=== PATIENT | male | born 1990 | race Caucasian/White ===

== ENCOUNTER → 2016-11-16 | Outpatient (CLI) | payer BC ==
[2016-11-16 13:37] LABS: SEMEN TIME OF COLLECTION 1035
[2016-11-16 13:38] LABS: DAYS OF ABSTINENCE 3; METHOD OF COLLECTION MASTURBATION; SEMEN COLOR YELLOW (GRY/GRYWHTE); SEMEN VOLUME 12.5 ML (>1.5); TYPE OF SPECIMEN CONTAINER STERILE
[2016-11-20 09:38] LABS: SPERM VIABILITY STAIN NOT PERFORMED % (>58%)
== END | disposition home or self-care (01) ==
LOC: C.LAB 11:07
DX: N46.9 Male infertility, unspecified (principal)